=== PATIENT | male | born 1955 | race Caucasian/White ===

== ENCOUNTER 2018-07-11 08:35 | Emergency (ER) | payer OTHER | END 2018-07-11 09:41 | disposition home or self-care (01) | LOC: SCSER 08:35 | DX: G51.0 Bell's palsy (principal); Z71.6 Tobacco abuse counseling | CPT/HCPCS: 99406 ==

== ENCOUNTER 2020-10-30 14:48 | Outpatient (CLI) | payer OTHER | END 2020-10-30 14:49 | disposition home or self-care (01) | LOC: BICULT 14:48 | PROVIDERS: ATTEND Family Medicine | DX: I73.9 Peripheral vascular disease, unspecified (principal); I70.203 Unspecified atherosclerosis of native arteries of extremities, bilateral legs | CPT/HCPCS: 93923 ==

== ENCOUNTER → 2025-06-16 | Day surgery (SDC) | payer OTHER ==
[~2025-06-16] MED LIST: Iopamidol 370 76% 100 ML VIAL ONE; Lidocaine 1% w/Epinephrine 1:100K 20 ML VIAL ONE; Sodium Bicarbonate 2.5 MEQ/5 ML SDV ONE
[2025-06-16 14:45] LABS: Estimated GFR - POC 93.0
== END ==
LOC: ULT 12:13
PROVIDERS: ATTEND Otolaryngology Plastic Surgery within the Head & Neck
PROC: 07B Lymphatic and Hemic Systems, Excision (ICD-10-PCS; principal; 2025-06-16)
DX: R59.0 Localized enlarged lymph nodes (principal); I10 Essential (primary) hypertension; F17.210 Nicotine dependence, cigarettes, uncomplicated; Z88.5 Allergy status to narcotic agent; Z88.6 Allergy status to analgesic agent
CPT/HCPCS: 36415; 38505; 70498; 76942; 82565; 88184; 88307; 88341; 88342; 88365; Q9967